=== PATIENT | female | born 1935 | race Caucasian/White ===

== ENCOUNTER → 2017-03-10 | Outpatient (CLI) | payer OTHER | LOC: RAD 14:14 | DX: M25.562 Pain in left knee (principal); M25.462 Effusion, left knee | CPT/HCPCS: 73564 ==

== ENCOUNTER 2020-12-15 01:25 | Emergency (ER) | payer OTHER ==
[~2020-12-15 01:25] MED LIST: ARICEPT10 MG PO; ASPIRIN CHEWABL81 MG PO; DOXYCYCLINE HY100 MG PO; ICAPS TABLET1 EACH PO; KEFLEX CAP 500500 MG PO; KLONOPIN1 MG PO; LEVOFLOXACIN250 MG PO; NORVASC2.5 MG PO; OMNICEF 300 MG300 MG PO; PAXIL10 MG PO; SYNTHROID25 MCG PO; VYTORIN 10-401 EACH PO; ZOFRAN4 MG PO
[2020-12-15 02:27] LABS: HEMOGLOBIN 13.2 gm/dl (12.3-15.3); RED BLOOD COUNT 4.29 M/UL (4.00-5.10); WHITE BLOOD COUNT 8.7 K/UL (4.5-11.0)
== END 2020-12-15 06:30 | disposition home or self-care (01) ==
LOC: ER1 01:25
PROVIDERS: Family Medicine
DX: S05.31XA Ocular laceration without prolapse or loss of intraocular tissue, right eye, initial encounter (principal); I10 Essential (primary) hypertension; F17.210 Nicotine dependence, cigarettes, uncomplicated; W22.8XXA Striking against or struck by other objects, initial encounter; Y92.009 Unspecified place in unspecified non-institutional (private) residence as the place of occurrence of the external cause
CPT/HCPCS: 70450; 71045; 80053; 85025; 93005; 99284

== ENCOUNTER 2021-02-14 16:00 | Inpatient (IN) | payer OTHER ==
[~2021-02-14] VITALS: Ht 154.9 cm; Wt 63.5 kg
[2021-02-14 17:57] LABS: HEMOGLOBIN 14.5 gm/dl (12.3-15.3); RED BLOOD COUNT 4.67 M/UL (4.00-5.10); WHITE BLOOD COUNT 6.1 K/UL (4.5-11.0)
[2021-02-14 18:17] LABS: BUN/CREATININE RATIO 29 (0-10)
[2021-02-15 06:12] LABS: WHITE BLOOD COUNT 5.5 K/UL (4.5-11.0)
[2021-02-15 06:19] LABS: HEMOGLOBIN 12.5 gm/dl (12.3-15.3); RED BLOOD COUNT 4.19 M/UL (4.00-5.10)
[2021-02-15 06:36] LABS: BUN/CREATININE RATIO 28 (0-10)
[2021-02-15] MEDS ORDERED: MACROBID 100 M100 MG PO (13:05)
[2021-02-15] MEDS ORDERED: VITAMIN D350 MCG PO (17:37)
[2021-02-15] MEDS ORDERED: CALCIUM CITRAT1 EAC4 PO (17:41)
[2021-02-15] MEDS ORDERED: VITAMIN B-121000 MC2 PO (17:42)
[2021-02-15] MEDS ORDERED: AZO CRANBERRY1 EAC1 PO (17:51)
[2021-02-16 04:26] LABS: HEMOGLOBIN 11.9 gm/dl (12.3-15.3); WHITE BLOOD COUNT 6.5 K/UL (4.5-11.0)
[2021-02-16 04:46] LABS: BUN/CREATININE RATIO 24 (0-10)
[2021-02-17 07:05] LABS: HEMOGLOBIN 12.7 gm/dl (12.3-15.3); RED BLOOD COUNT 4.37 M/UL (4.00-5.10)
[2021-02-17 07:06] LABS: WHITE BLOOD COUNT 4.6 K/UL (4.5-11.0)
[2021-02-17 07:39] LABS: BUN/CREATININE RATIO 19 (0-10)
[2021-02-18] MEDS ORDERED: ZOSYN 3.3753.375 GM INJ (11:32)
[2021-02-18] MEDS ORDERED: SEROQUEL25 MG PO (11:33)
== END 2021-02-18 14:53 | DRG 689 ==
LOC: ER1 16:00 → CDU 19:34 → MED SURG 4 19:34
PROVIDERS: Internal Medicine; Physician Assistant; ADMIT Family Medicine
DX: N30.00 Acute cystitis without hematuria (principal); G93.41 Metabolic encephalopathy; F01.50 Vascular dementia, unspecified severity, without behavioral disturbance, psychotic disturbance, mood disturbance, and anxiety; E78.00 Pure hypercholesterolemia, unspecified; Z20.822 Contact with and (suspected) exposure to COVID-19; E53.8 Deficiency of other specified B group vitamins; F10.10 Alcohol abuse, uncomplicated; F17.210 Nicotine dependence, cigarettes, uncomplicated; I35.0 Nonrheumatic aortic (valve) stenosis; B96.5 Pseudomonas (aeruginosa) (mallei) (pseudomallei) as the cause of diseases classified elsewhere; E03.9 Hypothyroidism, unspecified; Z79.82 Long term (current) use of aspirin; Z87.440 Personal history of urinary (tract) infections
CPT/HCPCS: 36415; 70450; 71045; 80048; 80053; 81001; 82550; 82553; 83605; 83874; 84484; 85025; 85027; 87040; 87077; 87086; 87186; 96374; 97110-GP-CQ; 97162; 97167; 97530-GP-CQ; 99285; J0696; J1650; J2543; J7030; U0002